=== PATIENT | female | born 1985 | race Caucasian/White ===

== ENCOUNTER 2017-12-05 08:42 | Inpatient (IN) | payer OTHER ==
[~2017-12-05] VITALS: Ht 170.2 cm; Wt 85.3 kg
[2017-12-05 10:30] VITALS: BP 121/72
[2017-12-05] MEDS ORDERED: NUVARING VAGIN1 EACH CERVICAL (10:47)
[2017-12-05] MEDS ORDERED: ADDERALL 10 MG10 MG PO (11:27)
[2017-12-05] MEDS ORDERED: ZOLOFT50 MG PO (11:27)
[2017-12-05 11:45] LABS: WBC 5.2 thou/uL (4.0-11.0)
[2017-12-05 11:46] LABS: ABSOLUTE BASOPHILS 0.1 thou/uL (0.0-0.2); ABSOLUTE EOSINOPHILS 0.2 thou/uL (0.0-0.7); ABSOLUTE LYMPHOCYTES 1.6 thou/uL (0.8-5.3); ABSOLUTE MONOCYTES 0.4 thou/uL (0.0-1.2); ABSOLUTE NEUTROPHILS 2.9 thou/uL (1.6-8.1); HEMATOCRIT 36.8 % (37.0-47.0); HEMOGLOBIN 12.5 gm/dL (12.0-15.0); LYMPHOCYTES 31.3 %; MCH 31.5 pg (26.0-34.0); MCHC 33.9 g/dL (28.0-37.0); MCV 92.8 fL (80.0-100.0); MONOCYTES 8.5 %; MPV 7.7 fl. (7.2-11.1); NUCLEATED RBCS 0 /100WBC; PLATELET COUNT* 236 thou/uL (150-400); POLYS 55.2 %; RBC 3.96 mil/uL (4.20-5.00); RDW-CV 12.4 % (10.5-14.5)
[2017-12-05 11:57] LABS: APTT 25.2 Seconds (25.0-31.3); PROTIME 9.8 Seconds (9.20-11.50)
[2017-12-05 12:13] LABS: ALBUMIN 3.5 g/dL (3.4-5.0); CALCIUM 8.7 mg/dL (8.5-10.1); CREATININE 0.8 mg/dL (0.6-1.3); POTASSIUM 3.8 mmol/L (3.5-5.1); TOTAL BILIRUBIN 0.3 mg/dL (<0.1-1.0); TOTAL PROTEIN 6.5 g/dL (6.4-8.2)
--- NOTE | 2017-12-05 12:29 | NUR ---
ASSUMED CARE OF PATIENT AFTER DIRECT ADMISSION TO ROOM 109 AT 1030. PATIENT AWAKE, ALERT, AND ORIENTED APPROPRIATELY. ADMISSION DOCUMENTATION COMPLETED AND CHARTED. IV STARTED IN PATIENT'S RIGHT AC, SEE DOCUMENTATION. PATIENT IS UP AD KRISTEN. FALL CONTRACT DISCUSSED AND SIGNED AND ON PATIENT'S CHART. PHOTOS OF FIRST DIGIT ON LEFT HAND OBTAINED AND ON CHART. CALL LIGHT WITHIN REACH. DENIES NEEDS AT THIS TIME. NURSING WILL CONTINUE TO MONITOR.
[2017-12-05 16:00] VITALS: BP 116/75
--- NOTE | 2017-12-05 17:28 | NUR ---
PATIENT REMAINS ALERT AND ORIENTED APPROPRIATELY. NO COMPLAINTS OF PAIN THIS SHIFT. GIVEN SCHEDULED MEDICATIONS, SEE EMAR FOR DOCUMENTATION. HAS REMAINED UP AD KRISTEN IN ROOM WITHOUT DIFFICULTIES. HAS AMBULATED IN THE HALLS AROUND UNIT. DENIES NEEDS AT THIS TIME. USES CALL LIGHT APPROPRIATELY. CALL LIGHT WITHIN REACH. NURSING WILL CONTINUE TO MONITOR.
[2017-12-06 00:26] VITALS: BP 114/72
--- NOTE | 2017-12-06 04:57 | NUR ---
PATIENT ORIENTED X4 ON HOURLY ROUNDS. MEDICATED FOR PAIN WITH IBUPROFEN X1 TO GOOD EFFECT. LEFT INDEX FINGER REMAINS RED AND EDEMATOUS, PATIENT ONLY ABLE TO MOVE TIP OF FINGER. IV ABX INFUSED ORDERED. VITALS STABLE ON ROOM AIR. CONTINUE TO MONITOR.
[2017-12-06 08:00] VITALS: BP 110/69
[2017-12-06 08:52] VITALS: BP 114/72
[2017-12-06 16:00] VITALS: BP 116/69
--- NOTE | 2017-12-06 17:12 | NUR ---
PATIENT REMAINED ALERT AND ORIENTED X'S 4. VITAL SIGNS AND SPO2 STABLE. LEFT UNIT FOR PACU AT 0900. SHE CAME BACK TO UNIT AROUND 1115. IV CLEAN, FLUIDS INFUSING. IV POSITIONAL, HAD TO BE ADJUSTED A FEW TIMES. PAIN WELL CONTROLLED WITH PAIN MEDS. VOIDED WITHOUT ISSUE. STEADY GAIT, 1 ASSIST. TOLERATED DIET, NO NAUSEA AND VOMITING. NON WEIGHT BEARING LUE. DRESSING OVER LEFT HAND CLEAN, DRY, INTACT. SCD'S IN PLACE. COMPLETED HOURLY ROUNDING. CALL LIGHT WITHIN REACH. WILL CONTINUE TO MONITOR.
[2017-12-06 20:00] VITALS: BP 106/62
[2017-12-07 00:40] VITALS: BP 101/58
[2017-12-07 03:32] VITALS: BP 103/60
[2017-12-07 08:10] VITALS: BP 104/63
--- NOTE | 2017-12-07 08:12 | NUR ---
Alert and oriented x 4. L arm/L forefinger in bulky acewrap dressing that is dry and intact and elevated on pillow. Vitals have been within normal limits she was concerned b/c her O2 sat was 95-96% on roomair but she has improved. Up with supervision. Voiding well. Slept well.
[2017-12-07 16:00] VITALS: BP 106/97
--- NOTE | 2017-12-07 17:04 | NUR ---
PATIEN ALERT AND ORIENTED X 4. VITAL SIGNS STABLE ON ROOM AIR. UP WITH STAND BY ASSIST TO THE BATHROOM. IV POSITIONAL, BUT PATENT AND SALINE LOCKED. PAIN CONTROLLED WITH IV PAIN MEDICATION. VOIDED WIHOUT ISSUES. NON-WEIGHT BEARING LUE. DRESSING OVER LEFT HAND CLEAN, DRY, AND INTACT. SCD'S IN PLACE. HOURLY ROUNDS MAINTAINED THROUGHOUT THE SHIFT. CALL LIGHT WITHIN REACH. NURSING WILL CONTINUE TO MONITOR.
[2017-12-07 20:00] VITALS: BP 101/60
[2017-12-07 23:42] VITALS: BP 95/62
[2017-12-08 04:22] VITALS: BP 103/58
--- NOTE | 2017-12-08 05:22 | NUR ---
Alert and oriented x 4. L forefinger/hand acewrap dresssing dry and intact. Swelling to fingers has improved she has good cap-refill. She had pain med x 1. Slight nausea with pain meds so nausea med given with pain med. She is tolerating regular diet. Up independently to the bathroom. Vitals are stable. She has slept well.
--- NOTE | 2017-12-08 07:49 | CON ---
[address] [address] CONSULTATION Name: LIVE HUGHES Room: [address] IN M.R.#: [id number] Admission: 12/05/17 Attend Phys: Stepehn Mathews Discharge: Date of : 87 Report #: [id number] THIS REPORT FOR: //name// CC: Moses Perales DATE OF SERVICE: 12/05/2017 INFECTIOUS DISEASE CONSULTATION ATTENDING PHYSICIAN: Reji Perales DO REASON FOR EVALUATION: Left index finger cat bite complicated by moderate to marked inflammation. HISTORY OF PRESENT ILLNESS: Chart reviewed, patient examined. A 32-year-old without significant medical history who sustained an injury as a result of a cat bite yesterday 12/04/2017 over the MIP joint and was sustained a puncture injury. She was immediately started on Augmentin; however, over the course of the next 24 hours including today had increasing pain, swelling, made it difficult to bend the finger. She has not been systemically ill. Denies any pulmonary or gastrointestinal related complaints. ALLERGIES: SULFA. CURRENT MEDICATIONS: Include Unasyn, sertraline, ibuprofen, oxycodone, p.r.n. analgesics, antiemetics. PAST MEDICAL HISTORY: Breast implants. SOCIAL HISTORY: Nonsmoker, no ethanol. FAMILY HISTORY: Noncontributory. REVIEW OF SYSTEMS: As above. PHYSICAL EXAMINATION: GENERAL: She is alert, cooperative, appropriate, mild distress. LUNGS: Clear to auscultation. HEART: Regular rate. I do not appreciate any murmur. ABDOMEN: Soft, nontender, nondistended. EXTREMITIES: Left hand second digit has moderate to marked inflammatory changes and difficult to bend at the head of the metatarsophalangeal joint as well as the MIP is tender to palpation. GENITOURINARY: [place] [address] CONSULTATION Name: MARKEL HUGHESY Vince Room: [address] IN [facility]#: [id number] Admission: 12/05/17 Attend Phys: Stephen Mathews Discharge: Date of : 87 Report #: [id number] RECTAL: Deferred. LABORATORY DATA: Electrolytes: Sodium 142, potassium 3.8, chloride 107, bicarbonate is 27, BUN and creatinine 13 and 0.8, glucose of 95. LFTs unremarkable. Albumin of 6.5, total protein of 3.5. Estimated GFR of 84. PT 9.8, INR of 1.0. CBC: White count of 5.2, H and H 12.5 and 36.8, platelets of 236. ASSESSMENT AND PLAN: Cat bite injury complicated by inflammation likely deeper infection. Continue the Unasyn for now noted orthopedic surgery to evaluate probably additional imaging studies as well. At this point, she is not overtly toxic. We will have her elevate the site. <ELECTRONICALLY SIGNED> By: Quincy Alex MD 12/08/17 0749 1223 1927Quincy Alex MD /mandi
[2017-12-08 08:49] VITALS: BP 105/64
--- NOTE | 2017-12-08 11:29 | NUR ---
PT.GETTING PICC LINE AT PRESENT FOR HOME IV ANTIBIOTICS. FAXED FACE SHEET AND 'S ORDERS TO [facility] [phone]. WILL SPEAK WITH HER AFTER SHE RETURNS FROM GETTING PICC TO SEE WHICH AGENCY SHE WOULDLIKE TO USE.
--- NOTE | 2017-12-08 13:56 | NUR ---
DISCUSSED BENEFITS WITH PT., RECEIVED FROM [facility], FOR HOME IVAB. SHE WAS AGREEBLE TO THIS. SHE CHOSE THEM WELL FOR THE [facility] OF [facility]. NOTIFIED [facility]. SHE SAID THEY WOULD CALL PT.TO SET UP APPT.TO COME OUT TOMORROW FOR TEACHING FOR FIRST ANTIBIOTIC AT HOME. EXPLAINED [facility] WOULD [facility] IV ANTIBIOTIC SEPARATELY TO HER HOME. SHE SAID HER MOM AND DAD WOULD BE THERE TO ASSIST HER. HER WORKS DURING THE DAY.
--- NOTE | 2017-12-08 14:01 | NUR ---
CONSULTED TO PLACE P[facility] FOR HOME ATB THERAPY. ORDER NOTED. SPOKE WITH PT REGUARDING RISK AND BENIFIT. PT VERBALIZED UNDERSTANDING AND AGREED. CONSENT OBTAINED. RIGHT UPPER ARM BASILIC VEIN IDENTIFIED AND NOTED TO BE WIDLEY PATENT. A 3FR SINGLE LUMAN POWER PICC PLACED PER HOSPITAL POLICY. LINE TRIMMED TO 44CM AND ADVANCED TO 2CM EXTERNAL. LINE CONFIMED WITH SHERLOCK 3CG. LINE SECURED AND RELEASED FOR USE.
[2017-12-08 14:03] VITALS: BP 105/64
[2017-12-08] MEDS ORDERED: OXYCODONE HCL 55 MG PO (14:36)
[2017-12-08] MEDS ORDERED: TYLENOL325 MG PO (14:42)
[2017-12-08] MEDS ORDERED: IBUPROFEN 800800 M1 PO (14:42)
[2017-12-08 14:44] VITALS: BP 105/64
[2017-12-08] MEDS ORDERED: INVANZ 1GM/NS 101 GM IV (14:44)
--- NOTE | 2017-12-08 15:15 | OP ---
[facility] [address] [place] [address] OPERATIVE REPORT Name: LIVE HUGHES Room: [address] IN .R.#: [id number] Admission: 12/05/17 Attend Phys: Stephen Mathews Discharge: Date of : 87 Report #: [id number] THIS REPORT FOR: //name// CC: Moses Perales DICTATED BY: Regan Mckeon DO DATE OF SERVICE: 12/06/2017 PREOPERATIVE DIAGNOSIS: Left index finger flexor tenosynovitis. POSTOPERATIVE DIAGNOSIS: Left index finger flexor tenosynovitis. SURGEON: Tod Rosario DO. ASSISTANTS: 1. Rgean Mckeon DO 2. Remington Holden DO 3. Yaron Daugherty DO OPERATION PERFORMED: Left index finger irrigation and debridement of flexor tendon sheath. ANESTHESIA: General LMA. ESTIMATED BLOOD LOSS: 5 mL. SPECIMENS: 1. Synovial tissue x 1. 2. Culture swabs x 2. COMPLICATIONS: None. DISPOSITION: The patient stable in the PACU. INDICATIONS FOR PROCEDURE: The patient is a 32-year-old female who had a cat bite approximately 48 hours ago near the PIP joint of her left index finger on the volar aspect. She had a rapid progression of swelling about her left finger with redness and flexed posturing of that finger and pain with any attempted movement. She presented to the hospital after being on Augmentin orally for approximately 1 day with increasing swelling and pain. She was placed on IV antibiotics. She had mild improvement; however, continued to have 3-4/4 Kanavel signs on exam. Given the nature of the cat bite to this area around the flexor tendon sheath and her physical examination, it was recommended she undergo [facility] [address] [place] [address] OPERATIVE REPORT Name: HUGHESLIVE Room: [address] IN .R.#: [id number] Admission: 12/05/17 Attend Phys: Stephen Mathews Discharge: Date of : 87 Report #: [id number] irrigation and debridement of the flexor tendon sheath. All the risks, benefits, complications and indications were reviewed with the patient. This included injury to neurovascular structures in the area as well as the need for possible repeat I and D and stiffness following surgery. Following this, she gave informed consent and wished to proceed. DESCRIPTION OF PROCEDURE: The patient was brought to the operative suite, placed supine on a well-padded table. Left upper extremity was sterilely prepped and draped in a standard fashion. Timeout was taken to ensure correct patient, procedure, operative site, everybody in the room was in agreement at that time. Starting at the distal palmar crease in line with the index finger, a Alberto type Z incision was made through the skin only with a 15 blade scalpel. Careful dissection was then carried out with tenotomy scissor. The neurovascular bundles were visualized and were protected with a Ragnell retractor. Once dissection was taken down to the flexor tendon sheath itself, the flexor tendon sheath was incised proximally at the A1 ankit. Care was taken to make sure we did not incise the tendon sheath into the area of the A2 ankit. At this point in time, there was a small amount of hypertrophic synovium that was taken and sent as a specimen as well as two culture swabs taken. At this time, there was no real gross purulence, however. There was some generalized edema in the subcutaneous soft tissues above the sheath as well. At this time, a 5-Montenegrin angiocatheter was used to thoroughly irrigate the tendon sheath. Once approximately 120 mL of normal saline was used to irrigate the sheath, approximately 750 mL more was poured over the tendon to allow for appropriate irrigation. Once this was done, a 5-0 nylon was used to approximate the wound edges in simple interrupted fashion. At that time tourniquet was taken down. The finger immediately pinked up. A local anesthetic was given in the form of 0.5% Marcaine without epinephrine, performing a median nerve block as well as a digital nerve block of the index finger. Xeroform dressing, 4 x 4s, Kerlix, soft roll and Janak bandage were applied to the hand. The patient was awoken from anesthesia and brought to PACU in stable condition. <ELECTRONICALLY SIGNED> By: Tod Rosario DO 12/08/17 1515 1116 [id number] Rosario DO /mandi
--- NOTE | 2017-12-08 15:22 | NUR ---
ASSUMED CARE OF PATIENT AFTER REPORT THIS MORNING. PATIENT AWAKE, ALERT, AND ORIENTED APPROPRIATELY. PHYSICAL ASSESSMENT COMPLETED AND CHARTED. VITAL SIGNS STABLE. OXYGEN SATURATION WITHIN NORMAL LIMITS ON ROOM AIR. GIVEN SCHEDULED MEDICATIONS, SEE EMAR FOR DOCUMENTATION. RECEIVED ORDERS TO DISCHARGE PATIENT HOME AFTER PICC LINE PLACED. PICC LINE IS NOW IN PLACE AND IV TO RIGHT FOREARM REMOVED. PATIENT COMPLAINED OF PALPITATIONS POST PICC LINE PLACEMENT. NOTIFIED PHYSICIAN AND RECEIVED ORDERS FOR CHEST XRAY AND EKG. CHEST XRAY VERIFIED PLACEMENT, IN GOOD POSITION, FOR THE PICC LINE. EKG SHOWED SINUS RHYTHM. PATIENT NOTIFIED OF RESULTS. RECEIVED ORDERS TO DISCHARGE PATIENT HOME AFTER IV ANTIBIOTICS INFUSED. INFUSING AT THIS TIME. DISCHARGE PAPERWORK COMPLETED AND CHECKED BY SECOND NURSE. WAITING FOR PATIENT'S IV ANTIBIOTIC TO COMPLETE FOR DISCHARGE.
--- NOTE | 2017-12-08 16:05 | EKG ---
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
--- NOTE | 2017-12-08 16:19 | NUR ---
DISCUSSED DISCHARGE PAPERWORK WITH PATIENT, SIGNED BY ALL APPROPRIATE PARTIES, ON CHART. GIVEN PRESCRIPTION FOR OXYCODONE, DISCUSSED WITH PATIENT. ALSO GIVEN NOTE TO EXCUSE ABSENSE FROM CLINICAL ROTATIONS. PATIENT SENT HOME WITH PICC LINE IN PLACE TO RIGHT UPPER ARM. PATIENT DISCHAGED AT 1615.
== END 2017-12-08 16:15 | disposition home health service (06) | DRG 514 ==
LOC: M.ORTHSURG 10:13
PROVIDERS: ADMIT Internal Medicine
PROC: 0LB80ZZ Excision of Left Hand Tendon, Open Approach (ICD-10-PCS; principal; 2017-12-06)
PROC: 3E0T3BZ Introduction of Anesthetic Agent into Peripheral Nerves and Plexi, Percutaneous Approach (ICD-10-PCS; principal; 2017-12-06)
PROC: 02HV33Z Insertion of Infusion Device into Superior Vena Cava, Percutaneous Approach (ICD-10-PCS; 2017-12-08)
DX: M65.842 Other synovitis and tenosynovitis, left hand (principal); F32.9 Major depressive disorder, single episode, unspecified; F98.8 Other specified behavioral and emotional disorders with onset usually occurring in childhood and adolescence; Z88.2 Allergy status to sulfonamides; Z98.82 Breast implant status; W55.01XA Bitten by cat, initial encounter; Y93.89 Activity, other specified; Y92.89 Other specified places as the place of occurrence of the external cause; Y99.8 Other external cause status